=== PATIENT | female | born 1995 | race Caucasian/White ===

== ENCOUNTER 2020-04-09 12:27 | Emergency (ER) | payer SELFPAY ==
[~2020-04-09] VITALS: Ht 157.5 cm; Wt 71.7 kg
[2020-04-09 12:34] VITALS: BP 152/95
[2020-04-09] MEDS ORDERED: NEOMY/BACITR/POLYMYXIN OINT PACKET. TP ONE (13:00)
--- NOTE | 2020-04-09 13:06 | RAD ---
AP lateral and oblique views of the left hand and left wrist. No comparison. INDICATION: Fall with bruising and pain. FINDINGS: No fracture subluxation dislocation. There does appear to be periarticular soft tissue swelling of the wrist. Electronically signed by: Del Diez MD (04/09/2020 1:03 PM) [id number]
--- NOTE | 2020-04-09 13:22 | PHYS DOC ---
Past Medical History Past Medical History: No Pertinent History Past Surgical History: Smoking Status: Current Every Day Smoker Additional Information: 1/2 ppd Alcohol Use: Rarely Social History Narrative: denies General Adult EDM: Chief Complaint: UPPER EXTREMITY INJURY HPI: HPI: Patient is a 25 year old female who presents to the emergency department with complaints of left wrist pain after tripping and falling yesterday. She also has an abrasion to her left palm. Patient states her last tetanus shot was less than 5 years ago. She reports that she cannot move her thumb since the fall. She complains of diffuse swelling throughout her wrist. She denies any decreased range of motion of her wrist. Patient currently rates her pain 8 out of 10 on the pain scale. She states that she took some BC powder at home prior to arrival. Patient reports that this medication has helped to reduce the pain somewhat. She reports that the pain is worse with palpation and movement. Review of Systems: Review of Systems: Constitutional: Denies fever or chills. [] Respiratory: Denies cough or shortness of breath. [] Cardiovascular: Denies chest pain or edema. [] Musculoskeletal: See HPI Integument: Denies rash; see HPI. [] Neurologic: Denies focal weakness or sensory changes. [] Psychiatric: Denies depression or anxiety. [] Heart Score: Risk Factors: Risk Factors: DM, Current or recent (<one month) smoker, HTN, HLP, family history of CAD, obesity. Risk Scores: Score 0 - 3: 2.5% MACE over next 6 weeks - Discharge Home Score 4 - 6: 20.3% MACE over next 6 weeks - Admit for Clinical Observation Score 7 - 10: 72.7% MACE over next 6 weeks - Early Invasive Strategies Current Medications: Current Medications Medications (Trade) Dose Ordered Sig/Adan Start Time Stop Time Status Last Admin Dose Admin Neomycin/ Polymyxin/ Bacitracin (Triple Antibiotic Ointment) 1 pkt 1X ONCE 04/09/20 13:00 04/09/20 13:01 DC Allergies: Allergies: Allergies Coded Allergies Type Severity Reaction Last Updated Verified No Known Drug Allergies 04/09/20 No Physical Exam: PE: Constitutional: Well developed, well nourished, no acute distress, non-toxic appearance. [] HENT: Normocephalic, atraumatic, bilateral external ears normal, nose normal. [] Eyes: PERRLA, conjunctiva normal, no discharge. [] Neck: Normal range of motion, no stridor. [] Cardiovascular:Heart rate regular rhythm Lungs & Thorax: Respirations even and unlabored, no retractions, no respiratory distress Skin: Warm, dry; abrasion noted to the proximal palm of the left hand no active bleeding or drainage, mild surrounding erythema Extremities: Left wrist: Lateral tenderness to palpation without crepitus, no obvious deformity, 1+ swelling of the left wrist noted, no cyanosis, ROM intact; left hand: Thumb tenderness to palpation without obvious deformity or crepitus, no edema, no erythema, range of motion limited due to pain, full flexion, patient unable to extend her thumb. Neurologic: Alert and oriented X 3, no focal deficits noted. [] Psychologic: Affect normal, judgement normal, mood normal. [] Current Patient Data: Vital Signs: Vital Signs Date Time Temp Pulse Resp B/P (MAP) Pulse Ox O2 Delivery O2 Flow Rate FiO2 04/09/20 12:34 97.7 105 20 152/95 (114) 96 Room Air 97.7 EKG: EKG: [] Radiology/Procedures: Radiology/Procedures: PROCEDURE: WRIST 3V LEFT AP lateral and oblique views of the left hand and left wrist. No comparison. INDICATION: Fall with bruising and pain. FINDINGS: No fracture subluxation dislocation. There does appear to be periarticular soft tissue swelling of the wrist. [] Course & Med Decision Making: Course & Med Decision Making Pertinent Labs and Imaging studies reviewed. (See chart for details) [] Dragon Disclaimer: Amy Disclaimer: This electronic medical record was generated, in whole or in part, using a voice recognition dictation system. Departure Departure Impression: Primary Impression: Acute pain of left wrist Additional Impressions: Abrasion of left hand, initial encounter Injury of left thumb Qualified Codes: S69.92XA - Unspecified injury of left wrist, hand and finger(s), initial encounter Disposition: 01 HOME, SELF-CARE Condition: STABLE Referrals: DEN RUIZ MD Patient Instructions: Abrasion, [id number], Thumb Sprain, Wrist Pain, [id number] Additional Instructions: You can take Tylenol or ibuprofen as needed for pain. Recommend application of ice, elevation, and rest of affected extremity. Wear the splint that was placed until follow up appointment. Call Dr. Ruiz's office to schedule follow-up appointment. Return to the ER if your symptoms worsen. Justicifation of Admission Dx: Justifications for Admission: Justification of Admission Dx: N/A Splinting Splinting : Location: L wrist Pre-Made Type: velcro Pre-Proc Neuro Vasc Exam: normal Post-Proc Neuro Vasc Exam: normal, unchanged from pre-exam SINAI ARANGO APRN Apr 09, 2020 13:22
== END 2020-04-09 13:25 | disposition home or self-care (01) ==
LOC: ER 12:27
DX: S60.512A Abrasion of left hand, initial encounter (principal); S69.92XA Unspecified injury of left wrist, hand and finger(s), initial encounter; M25.532 Pain in left wrist; F17.200 Nicotine dependence, unspecified, uncomplicated; W01.0XXA Fall on same level from slipping, tripping and stumbling without subsequent striking against object, initial encounter; Y93.89 Activity, other specified; Y92.89 Other specified places as the place of occurrence of the external cause; Y99.8 Other external cause status
CPT/HCPCS: 29125; 73110; 73130; 99284